=== PATIENT | female | born 1995 | race Caucasian/White ===

== ENCOUNTER 2020-05-01 20:35 | Emergency (ER) | payer OTHER ==
[~2020-05-01] VITALS: Ht 172.7 cm; Wt 99.3 kg
[2020-05-01 20:39] VITALS: BP 115/68; Ht 172.7 cm; Wt 99.3 kg
== END 2020-05-01 21:32 | disposition home or self-care (01) ==
LOC: ED 20:35
DX: L73.2 Hidradenitis suppurativa (principal); M79.672 Pain in left foot; M79.671 Pain in right foot; J45.909 Unspecified asthma, uncomplicated